=== PATIENT | male | born 1995 | race Caucasian/White ===

== ENCOUNTER 2017-02-22 02:37 | Observation (INO) | payer OTHER ==
[~2017-02-22] VITALS: Ht 162.6 cm; Wt 72.7 kg
[2017-02-22] MEDS ORDERED: ONDANSETRON 4 MG INJ IV STA (04:11)
[2017-02-22] MEDS ORDERED: morphine 4 MG/ML VIAL IV STA ×2 (04:11→08:03)
--- NOTE | 2017-02-22 04:29 | ERD ---
ER Documentation Chief Complaint Date/Time DATE: 02/22/17 TIME: 04:20 Chief Complaint lost his balance while skating, landed on his L arm, facial abrasions, too (BRYAN RESTREPO NP) HPI This is a 21-year-old male presenting to emergency department after jumping out of a 2 story window and landing with his left arm extended. Patient now has severe left forearm pain and obvious deformity. Patient unable to actively move left arm. Denies numbness or tingling to left hand or fingertips. No loss of sensation. Able to wiggle fingers on left hand. (BRYAN RESTREPO NP) ROS All systems reviewed and are negative except as per history of present illness. (BRYAN RESTREPO NP) Allergies Allergies: Coded Allergies: No Known Allergy (Unverified , 02/22/17) Physical Exam Vitals Vital Signs Date Time Temp Pulse Resp B/P Pulse Ox O2 Delivery O2 Flow Rate FiO2 02/22/17 06:42 98.7 108 20 156/74 6 Room Air 02/22/17 02:40 99.8 105 22 127/58 97 (LOUISE RASHID MD) Physical Exam Const: In acute distress, alert, oriented Head: Atraumatic Eyes: Normal Conjunctiva ENT: Normal External Ears, Nose and Mouth. Neck: Full range of motion..~ No meningismus. Resp: Clear to auscultation bilaterally Cardio: Regular rate and rhythm, no murmurs Abd: Soft, non tender, non distended. Normal bowel sounds Skin: No petechiae or rashes Back: No midline or flank tenderness Ext: Obvious deformity to left forearm, cap refill <3 seconds to left hand. Sensation fully intact. Unable to actively move left arm. Neur: Awake and alert Psych: Normal Mood and Affect (BRYAN RESTREPO NP) Results 24 hrs Current Medications Medications (Trade) Dose Ordered Sig/Mata Route PRN Reason Start Time Stop Time Status Last Admin Dose Admin Morphine Sulfate (morphine) 4 mg ONCE STAT IV 02/22/17 04:11 02/22/17 04:13 DC 02/22/17 04:37 Ondansetron HCl (Zofran Inj) 4 mg ONCE STAT IV 02/22/17 04:11 02/22/17 04:13 DC 02/22/17 04:37 Hydromorphone HCl (Dilaudid) 0.5 mg ONCE STAT IV 02/22/17 04:50 02/22/17 04:51 DC 02/22/17 05:22 Ondansetron HCl (Zofran Inj) 4 mg BRIDGE ORDER PRN IV NAUSEA AND/OR VOMITING 02/22/17 06:30 02/23/17 06:29 Acetaminophen (Tylenol Tab) 650 mg ER BRIDGE PRN PO MILD PAIN/FEVER 02/22/17 06:30 02/23/17 06:29 (LOUISE RASHID MD) Procedures/MDM [place] [address] Radiology Main Line: [phone] DIAGNOSTIC IMAGING REPORT Patient: ERIK GONSALES : 1995 Age: 21 Sex: M MR #: [id number] DOS: 02/22/17410 Ordering MD: BRYAN RESTREPO NP Location: [facility] Room/Bed: PROCEDURE: Left forearm. CLINICAL INDICATION: Pain. TECHNIQUE: Two views including AP and lateral views of the left forearm were obtained. COMPARISON: None. FINDINGS: There are fractures of the proximal third of the radial and ulnar shafts with medial and dorsal offset. There is no dislocation. The joint spaces are within normal limits. Bone mineralization is within normal limits. There is no radiopaque foreign body or abnormal calcification. IMPRESSION: Proximal radial and ulnar shaft fractures. [place] [address] Radiology Main Line: [phone] DIAGNOSTIC IMAGING REPORT Patient: ERIK GONSALES : 1995 Age: 21 Sex: M MR #: [id number] DOS: 02/22/17410 Ordering MD: BRYAN RESTREPO NP Location: [facility] Room/Bed: PROCEDURE: Left wrist. CLINICAL INDICATION: Pain. TECHNIQUE: Three views including PA, lateral and oblique views were performed. COMPARISON: None. FINDINGS: There is no fracture, dislocation or bone destruction. The joint spaces are within normal limits. Bone mineralization is within normal limits. There is no radiopaque foreign body or abnormal calcification. IMPRESSION: No evidence of fracture. [address], [place] [address] Radiology Main Line: [phone] DIAGNOSTIC IMAGING REPORT Patient: ERIK GONSALES : 1995 Age: 21 Sex: M [id number] DOS: 02/22/17 0411 Ordering MD: BRYAN RESTREPO NP Location: [facility] Room/Bed: PROCEDURE: Left elbow. CLINICAL INDICATION: Pain. TECHNIQUE: 5 views including AP, lateral and oblique views of the left elbow were obtained. COMPARISON: None. FINDINGS: There are fractures of the proximal third of the radial and ulnar shafts with dorsal offset. There is no dislocation. The joint spaces are within normal limits. Bone mineralization is within normal limits. There is no radiopaque foreign body or abnormal calcification. IMPRESSION: Proximal radial and ulnar shaft fractures. MDM: 21 year old male presents to ER with left forearm pain after skating accident earlier today. Obvious deformity to left forearm on physical exam. Sensation fully intact. Vitals are stable. IV access obtained and patient given morphine 4 mg IV and Zofran 4 mg IV. X-ray left forearm reviewed by radiologist as proximal radial and ulnar shaft fractures. X-ray left wrist reviewed by radiologist as no evidence of fracture. X-ray left elbow reviewed by radiologist as proximal radial and ulnar shaft fractures. Patient continues to have pain and patient given Dilaudid 0.5 mg IV. Discussed findings with Dr. Rashid and we agree that patient will need orthopedic evaluation and admission for surgical repair. Dr. Rashid states he will contact orthopedic physician. (BRYAN RESTREPO NP) Attending addendum: Patient is a 21-year-old male with fall on outstretched hand and closed fracture of radius and ulna. He is neurovascularly intact. His compartments are soft. His x-ray shows significant displacement and there is obvious instability on exam. I spoke with Dr. Blair, the orthopedic surgeon on -call, and he reviewed the patient's x-rays and advised that I discharge the patient for outpatient orthopedic consultation. I was concerned that the patient will not be able to arrange for outpatient orthopedic consultation in a reasonable timeframe, and that his fracture is high risk for developing compartment syndrome, and requested a formal consultation from Dr. Blair. He stated that he would be able to see the patient in the evening or tomorrow morning. I requested that he see the patient as soon as possible, and will admit the patient to observation awaiting consultation. He was placed in a sugar tong splint with long-arm posterior splint. He was given morphine for pain. (LOUISE RASHID MD) Departure Diagnosis: Primary Impression: Fracture of radial shaft, with ulna, left, closed Encounter type: initial encounter Qualified Code: S52.202A - Fracture of radial shaft, with ulna, left, closed, initial encounter Condition: BRYAN Olea NP Feb 22, 2017 04:28 LOUISE RASHID MD Feb 22, 2017 06:57
[2017-02-22] MEDS ORDERED: HYDROmorphONE 1 MG/ML SYG IV STA (04:50)
--- NOTE | 2017-02-22 05:12 | RADRPT ---
PROCEDURE: Left forearm. CLINICAL INDICATION: Pain. TECHNIQUE: Two views including AP and lateral views of the left forearm were obtained. COMPARISON: None. FINDINGS: There are fractures of the proximal third of the radial and ulnar shafts with medial and dorsal offs et. There is no dislocation. The joint spaces are within normal limits. Bone mineralization is wi thin normal limits. There is no radiopaque foreign body or abnormal calcification. IMPRESSION: Proximal radial and ulnar shaft fractures. .Manjinder Garcia MD, Date Time Electronically viewed and signed by .Manjinder Garcia MD, on 02/22/2017 05:11 .T/
--- NOTE | 2017-02-22 05:13 | RADRPT ---
PROCEDURE: Left elbow. CLINICAL INDICATION: Pain. TECHNIQUE: 5 views including AP, lateral and oblique views of the left elbow were obtained. COMPARISON: None. FINDINGS: There are fractures of the proximal third of the radial and ulnar shafts with dorsal offset. There is no dislocation. The joint spaces are within normal limits. Bone mineralization is within normal limits. There is no radiopaque foreign body or abnormal calcification. IMPRESSION: Proximal radial and ulnar shaft fractures. .Manjinder Garcia MD, Date Time Electronically viewed and signed by .Manjinder Garcia MD, MD on 02/22/2017 05:12 .T/
--- NOTE | 2017-02-22 05:14 | RADRPT ---
PROCEDURE: Left wrist. CLINICAL INDICATION: Pain. TECHNIQUE: Three views including PA, lateral and oblique views were performed. COMPARISON: None. FINDINGS: There is no fracture, dislocation or bone destruction. The joint spaces are within normal limits. Bone mineralization is within normal limits. There is no radiopaque foreign body or abnormal calcif ication. IMPRESSION: No evidence of fracture. .Manjinder Garcia MD, Date Time Electronically viewed and signed by .Manjinder Garcia MD, MD on 02/22/2017 05:14 .T/
[2017-02-22] MEDS ORDERED: ACETAMINOPHEN 325 MG TAB PO PRN ×2 (06:30→09:00)
[2017-02-22] MEDS ORDERED: ONDANSETRON 4 MG INJ IV PRN ×2 (06:30→09:00)
[2017-02-22 08:14] VITALS: TEMP 98.9
--- NOTE | 2017-02-22 08:41 | HP ---
Date/Time of Note Date/Time of Note DATE: 02/22/17 TIME: 08:35 Assessment/Plan VTE Prophylaxis VTE Prophylaxis Intervention: SCD's Lines/Catheters IV Catheter Type (from Nrsg): Saline Lock Assessment/Plan Assessment/Plan ASSESSMENT 21-year-old male with no significant past medical history with proximal ulna and radial shaft fracture after jumping from second story window. PLAN -Pain management -Awaiting orthopedic evaluation. HPI/ROS Admit Date/Time Admit Date/Time Hx of Present Illness This is a 29-year-old male with no significant past medical history who presented to the emergency department complaining of left arm/hand pain. He jumped from a second story window and landed on his left arm/hand and immediately experiencing pain. Imaging done here in the ER shows a proximal ulna and radial shaft fracture. He denied hitting his head or facial injury. Denied chest pain, shortness of breath, fever, chills, nausea or vomiting. Dr. Osmar Perales from [facility] was consulted by ER physician. PMH/Family/Social Social History Smoking Status: Never smoker Exam/Review of Systems Vital Signs Vitals Vital Signs Date Time Temp Pulse Resp B/P Pulse Ox O2 Delivery O2 Flow Rate FiO2 02/22/17 08:14 98.9 100 20 134/77 100 Room Air Exam Constitutional: alert, oriented, well developed Psych: nl mood/affect, no complaints Eyes: EOMI, PERRL Respiratory: clear to auscultation, normal air movement Cardiovascular: nl pulses, regular rate and rhythm Gastrointestinal: non-tender, soft Extremities: other (Slight movement of left upper extremity causes pain) WALT FRAZIER MD Feb 22, 2017 08:41
[2017-02-22] MEDS ORDERED: ALBUTEROL/IPRATROPIUM (NEB) 3 ML AMP HHN PRN (09:00)
[2017-02-22] MEDS ORDERED: NACL 0.9% 3 ML SYG IV SCH (09:00)
[2017-02-22] MEDS: morphine 4 MG/ML VIAL IV PRN ×2 (10:02→14:24)
[2017-02-22 12:00] VITALS: BP 118/71; PULSE 98; RESP 20
[2017-02-22 12:30] VITALS: Ht 162.6 cm; Wt 72.7 kg
[2017-02-22 13:16] LABS: BASOPHILS % 0.2 % (0.0-2.0); EOSINOPHILS % 0.1 % (0.0-7.0); HEMATOCRIT 43.2 % (42.0-52.0); HEMOGLOBIN 14.3 g/dl (14.0-18.0); LYMPHOCYTES # 1.4 10^3/ul (0.8-2.9); LYMPHOCYTES % 11.4 % (15.0-51.0); MEAN CORPUSCULAR HGB CONC 33.1 g/dl (32.0-37.0); MEAN CORPUSCULAR VOLUME 78.5 fl (82.0-101.0); MEAN PLATELET VOLUME 10.7 fl (7.4-10.4); MONOCYTE # 0.9 10^3/ul (0.3-0.9); MONOCYTES % 7.6 % (0.0-11.0); NEUTROPHILS % 80.4 % (39.0-77.0); PLATELET COUNT 212 10^3/UL (140-415); RED CELL DISTRIBUTION WIDTH 13.3 % (11.5-14.5); WHITE BLOOD COUNT 11.9 10^3/ul (4.8-10.8)
[2017-02-22 13:42] LABS: ALBUMIN/GLOBULIN RATIO 1.61; BILIRUBIN,INDIRECT 0.2 mg/dl (0-1.1); BILIRUBIN,TOTAL 0.2 mg/dl (0.2-1.3); CREATININE 0.76 mg/dl (0.61-1.24); MAGNESIUM 1.8 mg/dl (1.7-2.5); POTASSIUM 3.6 mmol/L (3.5-5.1); TOTAL PROTEIN 8.1 g/dl (6.1-8.1)
--- NOTE | 2017-02-22 13:55 | PDOCDIS ---
Discharge Instructions CONDITION Patient Condition: Stable FOLLOW UP/APPOINTMENTS Follow-up Plan Patient is to follow up with his primary care provider as soon as possible. Patient also needs to be referred to an orthopedic surgeon by his PCP as soon as possible. Take medication only as prescribed. RAZ RUIZ Feb 22, 2017 13:55
[2017-02-22] MEDS ORDERED: HYDR-906 PO (14:00)
--- NOTE | 2017-02-22 14:09 | DS ---
Date/Time of Note Date/Time of Note DATE: 02/22/17 TIME: 14:06 Discharge Summary Admission/Discharge Info Admit Date/Time Feb 22, 2017 at 06:15 Discharge Date/Time Patient Condition: Stable Hx of Present Illness This is a 29-year-old male with no significant past medical history who presented to the emergency department complaining of left arm/hand pain. He jumped from a second story window and landed on his left arm/hand and immediately experiencing pain. Imaging done here in the ER shows a proximal ulna and radial shaft fracture. He denied hitting his head or facial injury. Denied chest pain, shortness of breath, fever, chills, nausea or vomiting. Dr. Osmar Perales from [facility] was consulted by ER physician. Hospital Course Patient is a 29-year-old male with no significant past medical history who presented to the emergency room department after jumping out of a two-story building and landing on his left arm and hand and found to have proximal ulnar and radial shaft fracture. Patient was admitted into the medicine service and seen by orthopedic surgeon who stated that the patient was safe for discharge after splinting and to follow-up with orthopedic surgeon as soon as possible in the outpatient setting. Patient will be discharged with small amount of pain medication and strict instructions to follow-up with his primary care provider to get a referral to an orthopedic surgeon as soon as possible. Patient understands and is agreeable to discharge. Discharge diagnoses Left elbow pain Left arm pain Left wrist pain Proximal ulnar and radial shaft fracture Home Meds Active Scripts Hydrocodone/Acetaminophen ([place] 5-325 Tablet) 1 Each Tablet, 1 EACH PO Q8 Y for PAIN, #21 TAB Prov:RAZ RUIZ 02/22/17 Primary Care Provider Not On Staff Doctor Time spent on discharge: > 30 minutes Pending Labs Laboratory Tests Test 02/22/17 13:09 White Blood Count 11.910^3/ul (4.8-10.8) Red Blood Count 5.5010^6/ul (4.70-6.10) Hemoglobin 14.3g/dl (14.0-18.0) Hematocrit 43.2% (42.0-52.0) Mean Corpuscular Volume 78.5fl (82.0-101.0) Mean Corpuscular Hemoglobin 26.0pg (29.0-33.0) Mean Corpuscular Hemoglobin Concent 33.1g/dl (32.0-37.0) Red Cell Distribution Width 13.3% (11.5-14.5) Platelet Count 97107^3/UL (140-415) Mean Platelet Volume 10.7fl (7.4-10.4) Neutrophils % 80.4% (39.0-77.0) Lymphocytes % 11.4% (15.0-51.0) Monocytes % 7.6% (0.0-11.0) Eosinophils % 0.1% (0.0-7.0) Basophils % 0.2% (0.0-2.0) Nucleated Red Blood Cells % 0.0/100WBC (0.0-0.0) Neutrophils # (Manual) 1010^3/ul (1.7-7.5) Lymphocytes # 1.410^3/ul (0.8-2.9) Monocytes # 0.910^3/ul (0.3-0.9) Eosinophils # 0.010^3/ul (0.0-0.5) Basophils # 0.010^3/ul (0.0-0.1) Nucleated Red Blood Cells # 0.010^3/ul (0.0-0.0) Sodium Level 139mmol/L (135-144) Potassium Level 3.6mmol/L (3.5-5.1) Chloride Level 100mmol/L (97-110) Carbon Dioxide Level 25mmol/L (21-31) Anion Gap 18 (8-16) Blood Urea Nitrogen 8mg/dl (7-20) Creatinine 0.76mg/dl (0.61-1.24) Glucose Level 110mg/dl (70-220) Calcium Level 9.0mg/dl (8.4-10.2) Magnesium Level 1.8mg/dl (1.7-2.5) Total Bilirubin 0.2mg/dl (0.2-1.3) Direct Bilirubin 0.00mg/dl (0.00-0.20) Indirect Bilirubin 0.2mg/dl (0-1.1) Aspartate Amino Transf (AST/SGOT) 21IU/L (15-46) Alanine Aminotransferase (ALT/SGPT) 31IU/L (13-69) Alkaline Phosphatase 82IU/L (42-121) Total Protein 8.1g/dl (6.1-8.1) Albumin 5.0g/dl (3.3-4.9) Globulin 3.10g/dl (1.3-3.2) Albumin/Globulin Ratio 1.61 RAZ RUIZ Feb 22, 2017 14:09
--- NOTE | 2017-02-22 16:14 | CONS ---
DATE OF ADMISSION: 02/22/2017 DATE OF CONSULTATION: 02/21/2017 CHIEF COMPLAINT: Left arm pain. HISTORY OF PRESENT ILLNESS: This is a 21-year-old male who is right hand dominant. According to the patient, he fell out of a window landing on his left arm. He had immediate pain and was brought to the [facility] Emergency Department. He denies any numbness or tingling. He has no other complaints. PAST MEDICAL HISTORY: None. MEDICATIONS: None. PAST SURGICAL HISTORY: None. FAMILY HISTORY: He lives with his parents. SOCIAL HISTORY: Denies tobacco, alcohol, or drug use. ALLERGIES: NO KNOWN DRUG ALLERGIES. REVIEW OF SYSTEMS: Negative except for HPI. PHYSICAL EXAMINATION: VITAL SIGNS: Afebrile, stable vital signs. EXTREMITIES: No acute distress. He is alert and oriented times 3. Left arm compartments are soft. He has intact sensation to light touch and distribution of radial, ulnar, and median nerves. He has a palpable radial artery pulse. There are no open wounds. LABORATORY DATA: X-rays of the left forearm demonstrates both bone forearm fracture. There is a transverse fracture of the mid shaft radius and ulna with displacement. X-rays of left wrist, no fractures or dislocations are seen. X-rays of left elbow, no fractures or dislocations are seen. IMPRESSION: A 21-year-old male, who fell out of a window sustaining a left closed displaced both bone forearm fracture. PLAN: Closed reduction with application of sugar tong splint was performed. The patient can be discharged from an orthopedic standpoint. He was instructed to follow up as an outpatient within 3 to 5 days. I discussed with the need for surgical intervention. I discussed the risks associated with surgery, which include infection, malunion, nonunion, loss of rotation, damage to neurovascular structures, risk of anesthesia, and even . I also explained to the patient the risks of compartment syndrome. The patient understood and all his questions were answered to his satisfaction. Dictated By: Osmar Perales MD /[email or web address]/[email or web address] /Document#: [id number]
== END 2017-02-22 15:24 | disposition home or self-care (01) ==
LOC: FTE 02:37 → MS1 06:15
PROVIDERS: ADMIT Internal Medicine; ATTEND Internal Medicine
DX: S52.302A Unspecified fracture of shaft of left radius, initial encounter for closed fracture (principal); S52.202A Unspecified fracture of shaft of left ulna, initial encounter for closed fracture; W17.89XA Other fall from one level to another, initial encounter; Y93.9 Activity, unspecified; Y92.9 Unspecified place or not applicable; Y99.9 Unspecified external cause status
CPT/HCPCS: 29105; 73080; 73090; 73110; 80053; 83735; 85025; 96374; 96375; 96376; J1170; J2270; J2405; Z7500; Z7502; Z7610; 99217; G0378

== ENCOUNTER → 2017-03-03 | Day surgery (SDC) | payer OTHER ==
[~2017-03-03] VITALS: Ht 162.6 cm; Wt 79.5 kg
[~2017-03-03] MED LIST: HYDR-906 PO
[2017-03-03 15:20] VITALS: BP 138/71; PULSE 88; RESP 18; Ht 162.6 cm; Wt 79.5 kg
== END | disposition home or self-care (01) ==
LOC: SDS 14:59
PROVIDERS: ATTEND Orthopaedic Surgery Adult Reconstructive Orthopaedic Surgery
DX: S52.102A Unspecified fracture of upper end of left radius, initial encounter for closed fracture (principal); S52.002A Unspecified fracture of upper end of left ulna, initial encounter for closed fracture; X58.XXXA Exposure to other specified factors, initial encounter; Y92.89 Other specified places as the place of occurrence of the external cause; Z53.9 Procedure and treatment not carried out, unspecified reason